=== PATIENT | female | born 1985 | race Asian ===

== ENCOUNTER 2019-01-08 13:50 | Emergency (ER) | payer BC, OTHER ==
[~2019-01-08] VITALS: Ht 157.5 cm; Wt 86.4 kg
[2019-01-08] MEDS ORDERED: [UNRECOGNIZED DRUG - CODE] PO (13:59)
[2019-01-08] MEDS ORDERED: MULT-1274 PO (13:59)
[2019-01-08] MEDS ORDERED: CHOL50004 PO (13:59)
[2019-01-08] MEDS ORDERED: LACT1CAP62 PO (13:59)
[2019-01-08] MEDS ORDERED: SODIUM CHLORIDE 0.9% 1,000 ML IV ONE (14:15)
[2019-01-08] MEDS ORDERED: KETOROLAC TROMETHAMINE 30 MG/ML VIAL IVP ONE (14:45)
[2019-01-08] MEDS ORDERED: DEXAMETHASONE SOD PHOS 4 MG/ML VIAL IVP ONE (14:45)
[2019-01-08 15:39] VITALS: BP 136/81
== END 2019-01-08 16:43 | disposition home or self-care (01) ==
LOC: EMS 13:51
DX: J02.8 Acute pharyngitis due to other specified organisms (principal)
CPT/HCPCS: 87430; 96374; 96375; 99283; J1100; J1885; J7030